=== PATIENT | female | born 1975 | race Caucasian/White ===

== ENCOUNTER 2020-05-18 19:27 | Inpatient (IN) | payer OTHER, SELFPAY ==
[2020-05-18 19:34] VITALS: BMI 32.5
[2020-05-18 19:39] VITALS: BP 139/79; PULSE 84; RESP 17; TEMP 36.5; O2SAT 93
[2020-05-18 20:45] VITALS: O2SAT 91
[2020-05-18 21:47] VITALS: BMI 32.3
[2020-05-18 22:00] VITALS: O2SAT 93
[2020-05-18] MEDS: Acyclovir 200 MG Capsule 400 MG PO (22:10)
[2020-05-18] MEDS: Bisacodyl 5 MG Tablet 10 MG PO (22:10)
[2020-05-18] MEDS: Senna/Docusate Sodium 1 Tablet 2 TABLET PO (22:10)
[2020-05-18] MEDS: Acetaminophen 500 MG Tablet 1000 MG PO (22:10)
[2020-05-18 22:25] VITALS: BP 130/78; PULSE 82; RESP 17; TEMP 36.5; O2SAT 93
[2020-05-19] MEDS: oxyCODONE 5 MG Tablet PO ×5 (02:35→21:48)
[2020-05-19 05:46] LABS: Hematocrit 34.3 % (37-47); Hemoglobin 10.9 g/dL (12.0-15.0); Mean Corp Hgb Conc 31.8 g/dL (32-36); Mean Corpuscular Hgb 29.1 pg (27.0-32.0); Mean Corpuscular Volume 91.5 fL (81-99); Mean Platelet Vol. 10.3 fl (6.2-12.0); Platelet Count 203 K/mm3 (150-450); RBC Distribution Width CV 14.7 % (11.6-14.6); RBC Distribution Width SD 48.8 fl (35.1-43.9); Red Blood Count 3.75 M/mm3 (4.2-5.4); White Blood Count 7.1 K/mm3 (4.4-11.0)
[2020-05-19 06:14] LABS: ALB/GLOB Ratio 0.6 RATIO (0.9-2.4); AST(SGOT) 33 U/L (15-37); Alanine Aminotransfer ALT/SGPT 39 U/L (13-56); Albumin, Serum 2.6 g/dL (3.2-5.0); Alkaline Phosphatase 63 U/L (45-117); Anion Gap 5 (5-15); BUN 15 mg/dL (7-18); BUN/Creat Ratio 21.9 RATIO (10-20); Calcium,Total 8.6 mg/dL (8.5-10.1); Chloride 103 mmol/L (98-107); Creatinine, Serum 0.68 mg/dL (0.55-1.02); EST Glomerular Filtration Rate 99 mL/min (>60); Est Glom Filt Rate - Afr Amer 120 mL/min (>60); Estimated Creatinine Clearance 92.12 ml/min; Globulin 4.7 g/dL (2.2-4.2); Glucose 107 mg/dL (74-106); Magnesium 2.4 mg/dL (1.6-2.6); Phosphorus 3.8 mg/dL (2.5-4.9); Potassium 4.1 mmol/L (3.5-5.1); Protein, Total 7.3 g/dL (6.4-8.2); Sodium Level 134 mmol/L (136-145)
[2020-05-19] MEDS: Acetaminophen 500 MG Tablet 1000 MG PO ×3 (06:28→21:42)
[2020-05-19 07:30] VITALS: BP 126/69; PULSE 97; RESP 16; TEMP 36.3; O2SAT 97
[2020-05-19] MEDS: Acyclovir 200 MG Capsule 400 MG PO ×2 (07:54→21:42)
[2020-05-19] MEDS: Gabapentin 100 MG Capsule PO ×3 (07:56→16:15)
[2020-05-19] MEDS: Senna/Docusate Sodium 1 Tablet 2 TABLET PO ×2 (07:56→21:43)
[2020-05-19] MEDS: cycloBENZAPRine HCl 10 MG Tablet PO ×2 (07:58→20:46)
[2020-05-19 08:00] VITALS: PULSE 92; RESP 18; O2SAT 97
[2020-05-19] MEDS: Lidocaine 5% Patch 1 PATCH TOPICAL (09:03)
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
--- NOTE | 2020-05-19 10:54 | NURSING ---
[facility] contacted. not available at this moment, but office will return call once arrives back in office. The trauma office also stated that depending on length of stay, that sometimes the CXR will be taken at this facility and sent to them and a telemeeting can be implemented.
[2020-05-19 11:00] VITALS: O2SAT 97
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
[2020-05-19] MEDS: Enoxaparin 40 MG/0.4 ML Syringe SC (12:13)
[2020-05-19 18:08] VITALS: O2SAT 100
[2020-05-19 19:41] VITALS: BP 137/74; PULSE 98; RESP 18; TEMP 36.6; O2SAT 100
[2020-05-19 22:00] VITALS: RESP 17; O2SAT 94
[2020-05-20] MEDS: cycloBENZAPRine HCl 10 MG Tablet PO ×2 (05:23→21:19)
[2020-05-20] MEDS: Enoxaparin 40 MG/0.4 ML Syringe SC (05:23)
[2020-05-20] MEDS: Acetaminophen 500 MG Tablet 1000 MG PO ×3 (05:23→21:19)
[2020-05-20] MEDS: Bisacodyl 10 MG Suppository RECTAL (05:29)
[2020-05-20 08:34] VITALS: O2SAT 95
[2020-05-20 09:30] VITALS: BP 121/66; PULSE 99; RESP 16; TEMP 36.6; O2SAT 97
[2020-05-20] MEDS: oxyCODONE 5 MG Tablet PO ×3 (10:28→22:27)
[2020-05-20] MEDS: Acyclovir 200 MG Capsule 400 MG PO ×2 (10:28→21:19)
[2020-05-20] MEDS: Gabapentin 100 MG Capsule PO ×3 (10:28→16:50)
[2020-05-20] MEDS: Lidocaine 5% Patch 1 PATCH TOPICAL (10:28)
--- NOTE | 2020-05-20 10:30 | NURSING ---
Pt c/o constipation, R/S given earlier in AM was ineffective, N.O. for soap suds enema, enema administered with +results. Pt noted to have XL BM, pt states relief, will continue to monitor.
[2020-05-20 21:26] VITALS: BP 133/71; PULSE 94; RESP 16; TEMP 36.2; O2SAT 94
[2020-05-21] MEDS: Enoxaparin 40 MG/0.4 ML Syringe SC (06:42)
[2020-05-21] MEDS: Acetaminophen 500 MG Tablet 1000 MG PO ×3 (06:42→20:54)
[2020-05-21] MEDS: oxyCODONE 5 MG Tablet PO ×3 (08:02→20:54)
[2020-05-21] MEDS: Gabapentin 100 MG Capsule PO ×3 (08:02→16:18)
[2020-05-21] MEDS: Acyclovir 200 MG Capsule 400 MG PO ×2 (08:02→20:55)
[2020-05-21] MEDS: cycloBENZAPRine HCl 10 MG Tablet PO ×2 (08:08→20:55)
--- NOTE | 2020-05-21 09:00 | NURSING ---
Patient assisted x 2 assist at this time to the shower chair. WBAT, weakness noted, minimal pain. Stand Pivot transfer.
[2020-05-21 10:00] VITALS: BP 125/67; PULSE 97; RESP 18; TEMP 36.8; O2SAT 95
[2020-05-21] MEDS: Lidocaine 5% Patch 1 PATCH TOPICAL (10:26)
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
[2020-05-21] MEDS: Senna/Docusate Sodium 1 Tablet 2 TABLET PO (20:54)
[2020-05-21 22:00] VITALS: BP 118/68; PULSE 100; RESP 16; TEMP 36.6; O2SAT 95
[2020-05-22] MEDS: cycloBENZAPRine HCl 10 MG Tablet PO ×3 (05:54→21:23)
[2020-05-22] MEDS: Enoxaparin 40 MG/0.4 ML Syringe SC (05:54)
[2020-05-22] MEDS: Acetaminophen 500 MG Tablet 1000 MG PO ×3 (05:55→21:22)
[2020-05-22 06:39] VITALS: O2SAT 96
[2020-05-22 07:31] VITALS: BP 125/72; PULSE 91; RESP 16; TEMP 36.7; O2SAT 96
[2020-05-22] MEDS: Gabapentin 100 MG Capsule PO ×3 (08:58→16:15)
[2020-05-22] MEDS: Acyclovir 200 MG Capsule 400 MG PO ×2 (08:58→21:22)
[2020-05-22] MEDS: oxyCODONE 5 MG Tablet PO ×3 (08:58→19:17)
[2020-05-22] MEDS: Senna/Docusate Sodium 1 Tablet 2 TABLET PO ×2 (08:59→21:22)
[2020-05-22] MEDS: Lidocaine 5% Patch 1 PATCH TOPICAL (09:00)
--- NOTE | 2020-05-22 09:17 | CASEMGMT ---
Social Work IDT met with patient and S.O. via conference call for Team meeting. Discussed patient's progress in therapy. Pt is x2-3 assist for bed mobility, standing x2, dependent/totalA for all ADLs, using BSC when possible. WBAT for both knees and using knee immobilizer. Pain is controlled with meds - Physician now scheduled meds to assist. Explained insurance 05/24 and continued stay is not guaranteed. Encouraged pt to get valentin built [place] and S.O. has bed on first floor. Discussed assistance in the home at [place] because pt will DC at [facility]. Pt understandable and stated has several family and friends to assist. Offered to private nonskilled HHC list. Explained will order skilled HHC and DME needs at [place]. Pt has received donated DME currently. Will continue to follow. CHARISSE MarchW
[2020-05-22 19:21] VITALS: BP 141/81; PULSE 97; RESP 17; TEMP 36.4; O2SAT 98
[2020-05-22 22:00] VITALS: RESP 16
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
[2020-05-23] MEDS: oxyCODONE 5 MG Tablet PO ×5 (02:12→22:37)
[2020-05-23] MEDS: Acetaminophen 500 MG Tablet 1000 MG PO ×3 (05:42→21:47)
[2020-05-23] MEDS: Enoxaparin 40 MG/0.4 ML Syringe SC (05:43)
[2020-05-23] MEDS: cycloBENZAPRine HCl 10 MG Tablet PO ×3 (05:43→21:46)
[2020-05-23 06:30] VITALS: O2SAT 96
[2020-05-23 07:29] VITALS: BP 138/83; PULSE 108; RESP 16; TEMP 36.6; O2SAT 99
[2020-05-23 07:34] VITALS: O2SAT 96
[2020-05-23] MEDS: Lidocaine 5% Patch 1 PATCH TOPICAL (08:14)
[2020-05-23] MEDS: Gabapentin 100 MG Capsule PO ×3 (08:14→16:53)
[2020-05-23] MEDS: Senna/Docusate Sodium 1 Tablet 2 TABLET PO ×2 (08:15→21:47)
[2020-05-23] MEDS: Acyclovir 200 MG Capsule 400 MG PO ×2 (08:15→21:47)
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
--- NOTE | 2020-05-23 14:26 | CASEMGMT ---
Social Work Insurance approved pt with NRD 05/30. Will continue to follow. Mary Brown MSW [employer]TI[employer] FURNITURE RESTORER
[2020-05-23 19:10] VITALS: BP 124/84; PULSE 105; RESP 16; TEMP 36.4; O2SAT 98
[2020-05-23 22:00] VITALS: PULSE 107; RESP 17
[2020-05-24] MEDS: oxyCODONE 5 MG Tablet PO ×5 (04:06→21:40)
[2020-05-24] MEDS: Acetaminophen 500 MG Tablet 1000 MG PO ×3 (06:06→21:41)
[2020-05-24] MEDS: Enoxaparin 40 MG/0.4 ML Syringe SC (06:06)
[2020-05-24] MEDS: cycloBENZAPRine HCl 10 MG Tablet PO ×3 (06:07→21:37)
[2020-05-24 07:34] VITALS: BP 135/82; PULSE 89; RESP 16; TEMP 36.4; O2SAT 96
[2020-05-24] MEDS: Senna/Docusate Sodium 1 Tablet 2 TABLET PO ×2 (07:48→21:37)
[2020-05-24] MEDS: Gabapentin 100 MG Capsule PO ×3 (07:48→16:34)
[2020-05-24] MEDS: Acyclovir 200 MG Capsule 400 MG PO ×2 (07:48→21:37)
[2020-05-24] MEDS: Lidocaine 5% Patch 1 PATCH TOPICAL (07:49)
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
[2020-05-24 19:30] VITALS: BP 146/85; PULSE 99; RESP 18; TEMP 36.6; O2SAT 99
[2020-05-24 22:00] VITALS: RESP 17
[2020-05-25] MEDS: oxyCODONE 5 MG Tablet PO ×5 (02:48→22:06)
--- NOTE | 2020-05-25 03:37 | NURSING ---
Pt c/o pain at chest tube site of left chest. Dressing was removed and site had moderate dried drainage. Sterile water was used to cleanse site and replace gauze dressing. Pt denies pain with inhalation/exhalation but said it just comes once in a while. Pain described as a sharp pain.
[2020-05-25] MEDS: Acetaminophen 500 MG Tablet 1000 MG PO ×3 (06:08→21:52)
[2020-05-25] MEDS: cycloBENZAPRine HCl 10 MG Tablet PO ×3 (06:09→21:58)
[2020-05-25] MEDS: Enoxaparin 40 MG/0.4 ML Syringe SC (06:13)
[2020-05-25 07:50] VITALS: BP 131/77; PULSE 101; RESP 16; TEMP 36.6; O2SAT 97
[2020-05-25] MEDS: Lidocaine 5% Patch 1 PATCH TOPICAL (08:57)
[2020-05-25] MEDS: Acyclovir 200 MG Capsule 400 MG PO ×2 (08:58→21:58)
[2020-05-25] MEDS: Senna/Docusate Sodium 1 Tablet 2 TABLET PO ×2 (08:58→21:57)
[2020-05-25] MEDS: Gabapentin 100 MG Capsule PO ×3 (08:58→16:36)
[2020-05-25 19:09] VITALS: BP 122/69; PULSE 105; RESP 18; TEMP 36.9; O2SAT 94
[2020-05-26] MEDS: oxyCODONE 5 MG Tablet PO ×5 (02:36→23:01)
[2020-05-26] MEDS: Acetaminophen 500 MG Tablet 1000 MG PO ×3 (05:48→23:01)
[2020-05-26] MEDS: cycloBENZAPRine HCl 10 MG Tablet PO ×3 (05:49→23:01)
[2020-05-26] MEDS: Enoxaparin 40 MG/0.4 ML Syringe SC (05:49)
[2020-05-26 08:00] VITALS: BP 127/76; PULSE 103; RESP 16; TEMP 36.7; O2SAT 99
[2020-05-26] MEDS: Lidocaine 5% Patch 1 PATCH TOPICAL (08:52)
[2020-05-26] MEDS: Gabapentin 100 MG Capsule PO ×3 (08:53→17:19)
[2020-05-26] MEDS: Acyclovir 200 MG Capsule 400 MG PO ×2 (08:53→23:01)
[2020-05-26] MEDS: Senna/Docusate Sodium 1 Tablet 2 TABLET PO ×2 (08:53→23:01)
--- NOTE | 2020-05-26 18:46 | NURSING ---
pt ambulated hallways x1 staff assist with w/w x1 lap, tolerated well.
[2020-05-26 22:00] VITALS: BP 107/71; PULSE 100; RESP 16; TEMP 36.6; O2SAT 98
[2020-05-27] MEDS: oxyCODONE 5 MG Tablet PO ×4 (03:01→22:29)
[2020-05-27] MEDS: Acetaminophen 500 MG Tablet 1000 MG PO ×3 (06:54→20:43)
[2020-05-27] MEDS: cycloBENZAPRine HCl 10 MG Tablet PO ×3 (06:55→20:44)
[2020-05-27] MEDS: Enoxaparin 40 MG/0.4 ML Syringe SC (06:56)
[2020-05-27 08:07] VITALS: BP 125/75; PULSE 103; RESP 16; TEMP 36.3; O2SAT 97
[2020-05-27] MEDS: Gabapentin 100 MG Capsule PO ×3 (08:25→16:31)
[2020-05-27] MEDS: Acyclovir 200 MG Capsule 400 MG PO ×2 (08:25→20:43)
[2020-05-27] MEDS: Senna/Docusate Sodium 1 Tablet 2 TABLET PO (08:25)
[2020-05-27] MEDS: Lidocaine 5% Patch 1 PATCH TOPICAL (08:26)
[2020-05-27 19:30] VITALS: BP 118/67; PULSE 99; RESP 18; TEMP 36.6; O2SAT 98
[2020-05-28] MEDS: cycloBENZAPRine HCl 10 MG Tablet PO ×3 (06:59→21:30)
[2020-05-28] MEDS: Enoxaparin 40 MG/0.4 ML Syringe SC (06:59)
[2020-05-28] MEDS: Acetaminophen 500 MG Tablet 1000 MG PO ×3 (06:59→21:29)
[2020-05-28] MEDS: oxyCODONE 5 MG Tablet PO ×2 (08:47→18:37)
[2020-05-28] MEDS: Acyclovir 200 MG Capsule 400 MG PO ×2 (08:47→21:31)
[2020-05-28] MEDS: Gabapentin 100 MG Capsule PO ×3 (08:48→17:30)
[2020-05-28] MEDS: Lidocaine 5% Patch 1 PATCH TOPICAL (08:48)
[2020-05-28 09:30] VITALS: BP 130/77; PULSE 93; RESP 16; TEMP 36.7; O2SAT 96
--- NOTE | 2020-05-28 18:06 | NURSING ---
ambulated around halls x2 with walker and standby assist.
[2020-05-28 21:00] VITALS: BP 121/66; PULSE 100; RESP 18; TEMP 36.6; O2SAT 98
[2020-05-29] MEDS: oxyCODONE 5 MG Tablet PO ×4 (00:51→18:18)
--- NOTE | 2020-05-29 04:36 | NURSING ---
reviewed and agree with WILDLIFE BIOSTATION RESEARCH ECOLOGIST assessment and functionals.
[2020-05-29] MEDS: Enoxaparin 40 MG/0.4 ML Syringe SC (06:38)
[2020-05-29] MEDS: cycloBENZAPRine HCl 10 MG Tablet PO ×3 (06:38→21:41)
[2020-05-29] MEDS: Acetaminophen 500 MG Tablet 1000 MG PO ×3 (06:38→21:44)
[2020-05-29 08:10] VITALS: BP 122/85; PULSE 102; RESP 16; TEMP 36.5; O2SAT 96
[2020-05-29] MEDS: Acyclovir 200 MG Capsule 400 MG PO ×2 (08:45→22:19)
[2020-05-29] MEDS: Gabapentin 100 MG Capsule PO ×3 (08:45→16:20)
[2020-05-29] MEDS: Lidocaine 5% Patch 1 PATCH TOPICAL (09:54)
--- NOTE | 2020-05-29 10:05 | CASEMGMT ---
Social Work IDT met with patient for Team meeting. Discussed patient's progress in therapy. Pt is CGA to sit to stand, SBA for bed mobility, ambulating 100ft x3 on multiple surfaces with FWW at CGA, left leg mechanics in walking have greatly improved. Pt is Marcela for bathing, set up for UE dressing and grooming, SBA for LE dressing, CGA to min for toilet tx. Pt has handrails installed in bathroom and ramp to get into house. However, ramp still has 2.5 inches step to get into house. PT to work on that, however, pt still cannot complete full step. Pt will DC home with [facility] then transition to outpatient therapy. Explained insurance NRD 05/30 and continued stay is not guaranteed. Will ReTeam next week. Will continue to follow. CHARISSE March BRIDGE BUILDER
--- NOTE | 2020-05-29 19:21 | NURSING ---
Pt ambulating unit x1 assist around unit x2 times.
[2020-05-29 19:23] VITALS: BP 119/69; PULSE 100; RESP 17; TEMP 37.1; O2SAT 98
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
[2020-05-29 22:00] VITALS: PULSE 101; RESP 18; O2SAT 97
[2020-05-30] MEDS: oxyCODONE 5 MG Tablet PO ×5 (01:03→23:20)
[2020-05-30] MEDS: cycloBENZAPRine HCl 10 MG Tablet PO ×3 (06:40→22:00)
[2020-05-30] MEDS: Enoxaparin 40 MG/0.4 ML Syringe SC (06:40)
[2020-05-30] MEDS: Acetaminophen 500 MG Tablet 1000 MG PO ×3 (06:40→22:00)
[2020-05-30] MEDS: Gabapentin 100 MG Capsule PO ×3 (08:00→17:13)
[2020-05-30] MEDS: Acyclovir 200 MG Capsule 400 MG PO ×2 (08:00→22:01)
[2020-05-30] MEDS: Lidocaine 5% Patch 1 PATCH TOPICAL (08:00)
[2020-05-30 08:06] VITALS: BP 134/78; PULSE 89; RESP 16; TEMP 36.6; O2SAT 98
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
--- NOTE | 2020-05-30 15:25 | NURSING ---
Message left with Dr Nick Smith orthopedics office to make f/u appt.
--- NOTE | 2020-05-30 18:23 | NURSING ---
pt ambulated around unit at this time with staff. pt ambulates x1 lap at a SBA. pt tolerated well. pt medicated for pain and toileted prior to ambulation. denies further needs. call light within reach.
[2020-05-30 19:15] VITALS: BP 129/77; PULSE 97; RESP 16; TEMP 36.4; O2SAT 95
[2020-05-30 22:00] VITALS: PULSE 97; RESP 16; O2SAT 96
--- NOTE | 2020-05-31 02:58 | NURSING ---
Reviewed and agree with PALLIATIVE SENIOR NP documentation and charting.
[2020-05-31] MEDS: cycloBENZAPRine HCl 10 MG Tablet PO ×3 (05:19→21:45)
[2020-05-31] MEDS: Acetaminophen 500 MG Tablet 1000 MG PO ×3 (05:19→21:45)
[2020-05-31] MEDS: Enoxaparin 40 MG/0.4 ML Syringe SC (05:19)
[2020-05-31] MEDS: oxyCODONE 5 MG Tablet PO ×4 (08:04→21:52)
[2020-05-31] MEDS: Gabapentin 100 MG Capsule PO ×3 (08:06→16:23)
[2020-05-31] MEDS: Acyclovir 200 MG Capsule 400 MG PO ×2 (08:06→21:45)
[2020-05-31] MEDS: Lidocaine 5% Patch 1 PATCH TOPICAL (08:06)
[2020-05-31 08:19] VITALS: BP 122/76; PULSE 95; RESP 17; TEMP 36.5; O2SAT 94
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
--- NOTE | 2020-05-31 15:37 | CASEMGMT ---
Addendum entered by Mary Brown 05/31/20 15:55: [facility] unable to accept. Referred to [facility]. Original Note: Social Work Insurance approved through 06/04 with update or DC on 06/05. Spoke with pt and she is ready to DC home 06/03. Pt requesting [facility] PT/OT/SN. Referred to [facility]. No DME needs. Pt has all at home. S.O. to transport. Pt very appreciative of staff and care. Plan; DC home with S.O. 06/03 with [facility] PT/OT/SN. No DME Mary Bronw, CHARISSE PALACIOSW
--- NOTE | 2020-05-31 18:34 | NURSING ---
pt ambulated hallways SBA with w/w x2 laps, pt tolerated well.
[2020-05-31 21:45] VITALS: BP 125/76; PULSE 99; RESP 16; TEMP 36.8; O2SAT 98
[2020-06-01] MEDS: oxyCODONE 5 MG Tablet PO ×4 (03:08→22:05)
[2020-06-01] MEDS: cycloBENZAPRine HCl 10 MG Tablet PO ×3 (06:10→22:06)
[2020-06-01] MEDS: Acetaminophen 500 MG Tablet 1000 MG PO ×3 (06:10→22:06)
[2020-06-01] MEDS: Enoxaparin 40 MG/0.4 ML Syringe SC (06:10)
[2020-06-01 07:59] VITALS: BP 136/81; PULSE 100; RESP 16; TEMP 36.6; O2SAT 95
[2020-06-01] MEDS: Acyclovir 200 MG Capsule 400 MG PO ×2 (08:04→22:06)
[2020-06-01] MEDS: Lidocaine 5% Patch 1 PATCH TOPICAL (08:04)
[2020-06-01] MEDS: Gabapentin 100 MG Capsule PO ×3 (08:04→16:39)
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
[2020-06-01 19:00] VITALS: BP 131/69; PULSE 100; RESP 16; TEMP 36.4; O2SAT 99
[2020-06-02] MEDS: cycloBENZAPRine HCl 10 MG Tablet PO ×3 (06:11→22:07)
[2020-06-02] MEDS: Enoxaparin 40 MG/0.4 ML Syringe SC (06:11)
[2020-06-02] MEDS: Acetaminophen 500 MG Tablet 1000 MG PO ×3 (06:11→22:07)
[2020-06-02 07:32] VITALS: BP 135/82; PULSE 91; RESP 18; TEMP 36.5; O2SAT 97
[2020-06-02] MEDS: Lidocaine 5% Patch 1 PATCH TOPICAL (08:15)
[2020-06-02] MEDS: Acyclovir 200 MG Capsule 400 MG PO ×2 (08:15→22:08)
[2020-06-02] MEDS: oxyCODONE 5 MG Tablet PO ×4 (08:15→22:07)
[2020-06-02 21:20] VITALS: BP 135/87; PULSE 95; RESP 16; TEMP 36.6; O2SAT 97
[2020-06-03] MEDS: Enoxaparin 40 MG/0.4 ML Syringe SC (05:18)
[2020-06-03] MEDS: cycloBENZAPRine HCl 10 MG Tablet PO ×2 (05:18→13:17)
[2020-06-03] MEDS: oxyCODONE 5 MG Tablet PO ×2 (05:18→12:35)
[2020-06-03] MEDS: Acetaminophen 500 MG Tablet 1000 MG PO ×2 (05:19→13:17)
[2020-06-03 08:08] VITALS: BP 147/89; PULSE 88; RESP 16; TEMP 36.6; O2SAT 99
[2020-06-03] MEDS: Lidocaine 5% Patch 1 PATCH TOPICAL (08:11)
[2020-06-03] MEDS: Acyclovir 200 MG Capsule 400 MG PO (08:11)
[2020-06-03 13:36] VITALS: BP 147/89; PULSE 88; RESP 16; TEMP 36.6; O2SAT 99
--- NOTE | 2020-06-03 13:37 | NURSING ---
Patient given discharge instruct and verbalized understanding.
== END 2020-06-03 13:37 | disposition home health service (06) | DRG 561 ==
PROVIDERS: Admitting Provider Internal Medicine; PCP Internal Medicine; Visit Provider Internal Medicine
DX: S72.92XD Unspecified fracture of left femur, subsequent encounter for closed fracture with routine healing (principal); S82.001D Unspecified fracture of right patella, subsequent encounter for closed fracture with routine healing; S22.32XD Fracture of one rib, left side, subsequent encounter for fracture with routine healing; S12.600D Unspecified displaced fracture of seventh cervical vertebra, subsequent encounter for fracture with routine healing; S22.029D Unspecified fracture of second thoracic vertebra, subsequent encounter for fracture with routine healing; S22.039D Unspecified fracture of third thoracic vertebra, subsequent encounter for fracture with routine healing; S32.019D Unspecified fracture of first lumbar vertebra, subsequent encounter for fracture with routine healing; S32.029D Unspecified fracture of second lumbar vertebra, subsequent encounter for fracture with routine healing; V49.40XD Driver injured in collision with unspecified motor vehicles in traffic accident, subsequent encounter; S27.0XXD Traumatic pneumothorax, subsequent encounter; S36.031 Moderate laceration of spleen
CPT/HCPCS: 36415; 80053; 83735; 84100; 85027; 97110; 97116; 97140; 97163; 97166; 97530; 97535; 97537; 97802; 99251; G0463